=== PATIENT | male | born 1990 | race Asian ===

== ENCOUNTER 2021-09-23 08:57 | Outpatient (RCR) | payer OTHER, MEDICAID, SELFPAY | END 2021-12-14 11:53 | disposition home or self-care (01) | LOC: HO.WCC 08:57 | PROVIDERS: Visit Provider Surgery | DX: L89.153 Pressure ulcer of sacral region, stage 3 (principal); Z87.891 Personal history of nicotine dependence; Z86.16 Personal history of COVID-19 | CPT/HCPCS: 17250; 99212; 99213 ==